=== PATIENT | female | born 1940 | race Caucasian/White ===

== ENCOUNTER 2019-08-31 17:52 | Inpatient (IN) | payer MEDICARE, OTHER ==
[~2019-08-31] VITALS: Ht 167.6 cm; Wt 79.0 kg
[~2019-08-31 17:52] MED LIST: CALC-1197 PO; MULT-1085 PO; PARO-62 PO
[2019-08-31 18:23] LABS: BASOPHILS # (AUTO) 0.1 X10'3 (0-0.2); BASOPHILS % (AUTO) 0.7 % (0-1); EOSINOPHILS # (AUTO) 0.2 X10'3 (0-0.9); EOSINOPHILS % (AUTO) 1.8 % (0-6); HEMATOCRIT 32.8 % (35.0-45.0); LYMPHOCYTES # (AUTO) 2.3 X10'3 (1.1-4.8); LYMPHOCYTES % (AUTO) 24.1 % (21-51); MEAN CORPUSCULAR HEMOGLOBIN 29.4 PG (27.0-31.0); MEAN CORPUSCULAR HGB CONC 33.5 g/dL (33.0-36.5); MEAN CORPUSCULAR VOLUME 87.6 FL (78-98); MEAN PLATELET VOLUME 8.6 FL (7.4-10.4); MONOCYTES # (AUTO) 1.2 X10'3 (0-0.9); MONOCYTES % (AUTO) 12.4 % (2-12); NEUTROPHILS # (AUTO) 5.9 X10'3 (1.8-7.7); PLATELET COUNT 224 X10'3 (140-440); RED BLOOD COUNT 3.75 X10'6 (4.20-5.60); RED CELL DISTRIBUTION WIDTH 15.1 % (11.5-14.5); WHITE BLOOD COUNT 9.7 X10'3 (4.5-11.0)
[2019-08-31 18:47] LABS: ALANINE AMINOTRANSFERASE 18 U/L (12-78); ALBUMIN 3.4 G/DL (3.4-5.0); ALBUMIN/GLOBULIN RATIO 0.8 (1.1-1.5); ALKALINE PHOSPHATASE 115 IU/L (46-116); ANION GAP 14 (8-16); ASPARTATE AMINO TRANSFERASE 21 U/L (10-37); BILIRUBIN,TOTAL 0.2 MG/DL (0.1-1.0); BLOOD UREA NITROGEN 27 MG/DL (7-18); BUN/CREATININE RATIO 18.9 (6.6-38.0); CALCIUM 8.2 MG/DL (8.5-10.1); CHLORIDE 104 MMOL/L (99-107); CREATININE 1.43 MG/DL (0.40-0.90); GLUCOSE 167 MG/DL (70-104); SODIUM 138 MMOL/L (135-145); TOTAL CARBON DIOXIDE 20.5 MMOL/L (24-32); TOTAL PROTEIN 7.6 G/DL (6.4-8.2); eGFR 36 ML/MIN
[2019-08-31 18:53] LABS: POTASSIUM 4.1 MMOL/L (3.5-5.1)
[2019-08-31 21:04] LABS: TROPONIN I 0.12 NG/ML (0.0-0.05)
[2019-08-31] MEDS ORDERED: BUPR-84 PO (21:27)
[2019-08-31] MEDS ORDERED: aspirin 81mg tab.chew PO ONE (21:45)
[2019-08-31] MEDS ORDERED: nitroGLYCERIN 0.4mg/hour patch TD ONE (21:45)
[2019-08-31] MEDS ORDERED: furosemide 40mg/4ml inj IV ONE (21:45)
--- NOTE | 2019-08-31 23:14 | NUR ---
COVERING FOR ASSIGN NURSE ,PT ASKED FOR GLASS OF WATER ALSO CO ACID REFLEX NOTIFIED DR FRANKLIN PER MD PT CAN HAVE WATER AND SHE WILL ORDER MEDS FOR ACID REFLUX.
[2019-08-31] MEDS ORDERED: pantoprazole 40 MG vial IV ONE (23:15)
[2019-08-31] MEDS ORDERED: mag hydrox/Alum hydrox/simeth 30ml oral suspension PO ONE (23:15)
[2019-09-01] VITALS (7 sets, daily range): BP systolic 96–148; BP diastolic 57–77
[2019-09-01] MEDS ORDERED: ondansetron/PF 4mg/2ml inj IV PRN (00:10)
[2019-09-01] MEDS ORDERED: magnesium hydroxide 30ml (MOM) UD suspension PO PRN (00:10)
[2019-09-01] MEDS ORDERED: acetaminophen 325mg tablet PO PRN (00:10)
--- NOTE | 2019-09-01 01:03 | NUR ---
Report was taken from Michelle in ER. Patient arrived on the floor at 00:40 in no apparent distress. All question and concerns were addressed.
--- NOTE | 2019-09-01 06:33 | NUR ---
Problems reprioritized. Patient report given, questions answered & plan of care reviewed with Nai.
--- NOTE | 2019-09-01 06:35 | NUR ---
Patient in room PCU 3025. I have received report from Geovany/Michele RNs and had the opportunity to ask questions and assume patient care. Patient is currently sleeping in bed, bed locked and low, call light in reach, no acute distress, will continue to monitor.
[2019-09-01] MEDS ORDERED: furosemide 10 MG/1 ML 10ml inj IV ONE (08:00)
[2019-09-01] MEDS ORDERED: aspirin 325mg tablet PO SCH (08:30)
[2019-09-01] MEDS: carVEDilol 3.125mg tablet PO SCH ×2 (09:36→20:50)
[2019-09-01] MEDS: multivitamins, therapeutics tablet PO SCH (09:36)
[2019-09-01] MEDS: buPROPion SR 150mg tablet PO SCH ×2 (09:36→20:50)
[2019-09-01] MEDS: heparin, porcine 5000 units/ml vial SQ SCH ×2 (09:38→20:50)
[2019-09-01] MEDS ORDERED: furosemide 40mg/4ml inj IV ONE (10:45)
[2019-09-01 12:08] LABS: CHOL/HDL RATIO 2.5 (0.00-4.99); CHOLESTEROL 189 MG/DL (0-200); HDL CHOLESTEROL 77 MG/DL (35-60); LDL CHOLESTEROL 102 MG/DL (50-100); TRIGLYCERIDES 84 MG/DL (20-135)
--- NOTE | 2019-09-01 15:34 | NUR ---
PAGER ID: [phone] MESSAGE: Maroc Trimble, ext [phone], [phone], Elder, Patient is wanting to know results of her echo and states she wants to speak to the doctor as soon as possible.
[2019-09-01] MEDS: lisinopril 5mg tablet PO SCH (15:52)
--- NOTE | 2019-09-01 16:30 | NUR ---
PAGER ID: [phone] MESSAGE: COLBY Trimble ext [phone], [phone], Elder, please call, patient has not been seen yet.
--- NOTE | 2019-09-01 18:22 | NUR ---
Problems reprioritized. Patient report given, questions answered & plan of care reviewed with Kosta, RN. Patient stable at shift change
--- NOTE | 2019-09-01 18:35 | NUR ---
Patient in room PCU 3025. I have received report from Nai BOWMAN and had the opportunity to ask questions and assume patient care.
[2019-09-01] MEDS: furosemide 40mg/4ml inj IV SCH (20:49)
[2019-09-02 02:00] VITALS: BP 102/61
[2019-09-02 05:48] LABS: BASOPHILS % (AUTO) 0.4 % (0-1); EOSINOPHILS # (AUTO) 0.2 X10'3 (0-0.9); HEMATOCRIT 31.8 % (35.0-45.0); HEMOGLOBIN 11.1 g/dl (12.0-16.0); LYMPHOCYTES # (AUTO) 2.4 X10'3 (1.1-4.8); LYMPHOCYTES % (AUTO) 24.7 % (21-51); MEAN CORPUSCULAR HEMOGLOBIN 29.4 PG (27.0-31.0); MEAN CORPUSCULAR HGB CONC 34.8 g/dL (33.0-36.5); MEAN CORPUSCULAR VOLUME 84.6 FL (78-98); MEAN PLATELET VOLUME 8.9 FL (7.4-10.4); MONOCYTES # (AUTO) 1.1 X10'3 (0-0.9); MONOCYTES % (AUTO) 11.9 % (2-12); NEUTROPHILS # (AUTO) 5.8 X10'3 (1.8-7.7); PLATELET COUNT 222 X10'3 (140-440); RED BLOOD COUNT 3.76 X10'6 (4.20-5.60); RED CELL DISTRIBUTION WIDTH 14.7 % (11.5-14.5); WHITE BLOOD COUNT 9.6 X10'3 (4.5-11.0)
[2019-09-02 06:00] VITALS: BP 103/66
[2019-09-02 06:04] LABS: ALANINE AMINOTRANSFERASE 19 U/L (12-78); ALBUMIN 3.3 G/DL (3.4-5.0); ALBUMIN/GLOBULIN RATIO 0.8 (1.1-1.5); ALKALINE PHOSPHATASE 94 IU/L (46-116); ANION GAP 11 (8-16); ASPARTATE AMINO TRANSFERASE 21 U/L (10-37); BILIRUBIN,TOTAL 0.3 MG/DL (0.1-1.0); BLOOD UREA NITROGEN 37 MG/DL (7-18); BUN/CREATININE RATIO 21.4 (6.6-38.0); CALCIUM 8.7 MG/DL (8.5-10.1); CHLORIDE 103 MMOL/L (99-107); CREATININE 1.73 MG/DL (0.40-0.90); GLUCOSE 109 MG/DL (70-104); SODIUM 140 MMOL/L (135-145); TOTAL CARBON DIOXIDE 25.8 MMOL/L (24-32); TOTAL PROTEIN 7.2 G/DL (6.4-8.2); eGFR 29 ML/MIN
--- NOTE | 2019-09-02 06:28 | NUR ---
Problems reprioritized. Patient report given, questions answered & plan of care reviewed with Nai Javed RN.
--- NOTE | 2019-09-02 06:31 | NUR ---
Patient in room PCU 3025. I have received report from COLBY Brambila and had the opportunity to ask questions and assume patient care. Patient currently resting in bed, bed locked and low, call light in reach, no acute distress, will continue to monitor.
[2019-09-02] MEDS: furosemide 40mg/4ml inj IV SCH (07:55)
[2019-09-02] MEDS: atorvastatin 10mg tablet PO SCH (07:56)
[2019-09-02] MEDS: heparin, porcine 5000 units/ml vial SQ SCH ×2 (07:56→19:56)
[2019-09-02] MEDS: buPROPion SR 150mg tablet PO SCH ×2 (07:56→19:54)
[2019-09-02] MEDS: carVEDilol 3.125mg tablet PO SCH ×2 (07:56→19:58)
[2019-09-02] MEDS: multivitamins, therapeutics tablet PO SCH (08:07)
[2019-09-02] MEDS: lisinopril 5mg tablet PO SCH (08:08)
[2019-09-02] MEDS: aspirin 81mg tablet.DR PO SCH (08:30)
[2019-09-02] MEDS ORDERED: regadenoson 0.4mg/5ml syringe IV ONE ×2 (09:05→09:25)
[2019-09-02] MEDS ORDERED: nitroGLYCERIN 0.4mg SUBLingual tab SL PRN (09:05)
[2019-09-02] MEDS ORDERED: aminophylline 250mg/10ml inj. IV PRN (09:05)
[2019-09-02] MEDS ORDERED: metoprolol tartrate 1mg/ml inj IV PRN (09:05)
[2019-09-02] MEDS ORDERED: carVEDilol 3.125mg tablet PO ONE (09:50)
[2019-09-02 10:17] LABS: MAGNESIUM 1.8 MG/DL (1.5-2.4)
[2019-09-02 10:25] LABS: D-DIMER 9.96 MG/L FEU (0-0.50)
[2019-09-02] MEDS ORDERED: magnesium 2GM in 50ml NS 50 ML IV ONE (10:35)
[2019-09-02 11:00] VITALS: BP 81/48
--- NOTE | 2019-09-02 14:39 | NUR ---
PAGER ID: [phone] MESSAGE: COLBY Trimble ex [phone], Patient expressing new onset and worsening nausea, and sweating, hypotensive 87/51, no chest pain or other symptoms
[2019-09-02 15:00] VITALS: BP 110/44
[2019-09-02 18:00] VITALS: BP 120/44
--- NOTE | 2019-09-02 18:23 | NUR ---
Problems reprioritized. Patient report given, questions answered & plan of care reviewed with Kosta, RN. Patient resting in bed, no acute distress, stable at shift change
--- NOTE | 2019-09-02 18:30 | NUR ---
Patient in room PCU 3025. I have received report from Nai Javed RN and had the opportunity to ask questions and assume patient care.
[2019-09-02] MEDS ORDERED: potassium Cl 20 mEq SR tablet PO PRN ×2 (19:25)
[2019-09-02] MEDS ORDERED: magnesium Cl slow-release 64mg tablet PO PRN (19:25)
[2019-09-02] MEDS ORDERED: magnesium 4gm in 100ml NS 100 ML IV PRN (19:25)
[2019-09-02] MEDS ORDERED: potassium CL 10mEq/100ml bag 100 ML IV PRN (19:25)
[2019-09-02] MEDS: albuterol 2.5 MG/3 ML nebule NEB SCH (19:49)
[2019-09-02 22:00] VITALS: BP 92/60
[2019-09-02] MEDS ORDERED: normal saline 1000ml 1,000 ML IV ONE (22:20)
[2019-09-02] MEDS ORDERED: morphine 4 MG/ML inj SYRINge IV ONE (22:20)
[2019-09-02] MEDS: mag hydrox/Alum hydrox/simeth 30ml oral suspension PO PRN (22:30)
[2019-09-03] VITALS (19 sets, daily range): BP systolic 84–124; BP diastolic 48–74
[2019-09-03] MEDS: albuterol 2.5 MG/3 ML nebule NEB SCH ×4 (02:45→20:46)
[2019-09-03 05:22] LABS: BASOPHILS % (AUTO) 0.4 % (0-1); EOSINOPHILS # (AUTO) 0.1 X10'3 (0-0.9); EOSINOPHILS % (AUTO) 0.8 % (0-6); HEMATOCRIT 30.5 % (35.0-45.0); HEMOGLOBIN 10.5 g/dl (12.0-16.0); LYMPHOCYTES # (AUTO) 1.8 X10'3 (1.1-4.8); LYMPHOCYTES % (AUTO) 18.7 % (21-51); MEAN CORPUSCULAR HEMOGLOBIN 29.5 PG (27.0-31.0); MEAN CORPUSCULAR HGB CONC 34.3 g/dL (33.0-36.5); MEAN CORPUSCULAR VOLUME 85.8 FL (78-98); MEAN PLATELET VOLUME 8.7 FL (7.4-10.4); MONOCYTES % (AUTO) 10.8 % (2-12); NEUTROPHILS # (AUTO) 6.7 X10'3 (1.8-7.7); NEUTROPHILS % (AUTO) 69.3 % (42-75); PLATELET COUNT 225 X10'3 (140-440); RED BLOOD COUNT 3.56 X10'6 (4.20-5.60); RED CELL DISTRIBUTION WIDTH 14.9 % (11.5-14.5); WHITE BLOOD COUNT 9.6 X10'3 (4.5-11.0)
[2019-09-03 05:48] LABS: ALANINE AMINOTRANSFERASE 25 U/L (12-78); ALBUMIN 3.1 G/DL (3.4-5.0); ALBUMIN/GLOBULIN RATIO 0.8 (1.1-1.5); ALKALINE PHOSPHATASE 87 IU/L (46-116); ANION GAP 9 (8-16); ASPARTATE AMINO TRANSFERASE 25 U/L (10-37); BILIRUBIN,TOTAL 0.3 MG/DL (0.1-1.0); BLOOD UREA NITROGEN 44 MG/DL (7-18); CALCIUM 8.6 MG/DL (8.5-10.1); CHLORIDE 104 MMOL/L (99-107); GLUCOSE 108 MG/DL (70-104); POTASSIUM 4.1 MMOL/L (3.5-5.1); SODIUM 140 MMOL/L (135-145); TOTAL CARBON DIOXIDE 26.6 MMOL/L (24-32); TOTAL PROTEIN 6.8 G/DL (6.4-8.2); eGFR 24 ML/MIN
--- NOTE | 2019-09-03 06:40 | NUR ---
Problems reprioritized. Patient report given, questions answered & plan of care reviewed with Helene Garcia RN.
--- NOTE | 2019-09-03 07:17 | NUR ---
Page to Melissa MOLINA: PAGER ID: [phone] MESSAGE: Layla Paulson Pt. has both a BRANDI scan and a lung scan ordered for today. Only one can be preformed Per Karen BOWMAN . Which test is your preference for today. Helene BOWMAN [phone] [id number]
--- NOTE | 2019-09-03 07:19 | NUR ---
Patient in room PCU 3025. I have received report from Kosta RN, and had the opportunity to ask questions and assume patient care.
[2019-09-03] MEDS: carVEDilol 3.125mg tablet PO SCH ×2 (08:00→20:00)
[2019-09-03] MEDS: furosemide 40mg/4ml inj IV SCH ×2 (08:00→16:51)
[2019-09-03] MEDS: buPROPion SR 150mg tablet PO SCH ×2 (10:33→20:41)
[2019-09-03] MEDS: aspirin 81mg tablet.DR PO SCH (10:33)
[2019-09-03] MEDS: heparin, porcine 5000 units/ml vial SQ SCH ×2 (10:34→20:41)
--- NOTE | 2019-09-03 11:30 | NUR ---
Dr. Torres at bedside: Pt. leaves for Margo scan on O2, 3L.
[2019-09-03] MEDS ORDERED: aminophylline inj. 10 ML IV ONE (12:15)
[2019-09-03] MEDS: atorvastatin 10mg tablet PO SCH (15:34)
[2019-09-03] MEDS: multivitamins, therapeutics tablet PO SCH (15:34)
--- NOTE | 2019-09-03 17:10 | NUR ---
Jessi at bedside: Nursing will give IV lasix now.
--- NOTE | 2019-09-03 18:12 | NUR ---
Patient in room PCU 3024S. I have received report from COLBY Narayan and had the opportunity to ask questions and assume patient care. Pt is sleeping with no sign of distress. Will continue to monitor
--- NOTE | 2019-09-03 18:12 | NUR ---
Problems reprioritized. Patient report given, questions answered & plan of care reviewed with Chapito BOWMAN.
[2019-09-03] MEDS ORDERED: normal saline 1000ml 1,000 ML IV SCH (18:25)
[2019-09-04] VITALS (7 sets, daily range): BP systolic 94–130; BP diastolic 55–90
[2019-09-04] MEDS: albuterol 2.5 MG/3 ML nebule NEB SCH ×4 (03:40→19:57)
[2019-09-04 05:45] LABS: BASOPHILS % (AUTO) 0.2 % (0-1); EOSINOPHILS # (AUTO) 0.1 X10'3 (0-0.9); EOSINOPHILS % (AUTO) 1.1 % (0-6); HEMATOCRIT 28.8 % (35.0-45.0); LYMPHOCYTES # (AUTO) 1.4 X10'3 (1.1-4.8); LYMPHOCYTES % (AUTO) 15.6 % (21-51); MEAN CORPUSCULAR HEMOGLOBIN 29.7 PG (27.0-31.0); MEAN CORPUSCULAR HGB CONC 34.9 g/dL (33.0-36.5); MEAN CORPUSCULAR VOLUME 85.3 FL (78-98); MEAN PLATELET VOLUME 8.9 FL (7.4-10.4); NEUTROPHILS # (AUTO) 6.5 X10'3 (1.8-7.7); NEUTROPHILS % (AUTO) 72.1 % (42-75); PLATELET COUNT 224 X10'3 (140-440); RED BLOOD COUNT 3.38 X10'6 (4.20-5.60); RED CELL DISTRIBUTION WIDTH 14.8 % (11.5-14.5); WHITE BLOOD COUNT 8.9 X10'3 (4.5-11.0)
[2019-09-04 05:50] LABS: ALANINE AMINOTRANSFERASE 29 U/L (12-78); ALBUMIN 3.2 G/DL (3.4-5.0); ALBUMIN/GLOBULIN RATIO 0.8 (1.1-1.5); ALKALINE PHOSPHATASE 91 IU/L (46-116); ANION GAP 12 (8-16); ASPARTATE AMINO TRANSFERASE 28 U/L (10-37); BILIRUBIN,TOTAL 0.3 MG/DL (0.1-1.0); BLOOD UREA NITROGEN 51 MG/DL (7-18); BUN/CREATININE RATIO 26.7 (6.6-38.0); CALCIUM 8.1 MG/DL (8.5-10.1); CHLORIDE 102 MMOL/L (99-107); CREATININE 1.91 MG/DL (0.40-0.90); GLUCOSE 119 MG/DL (70-104); MAGNESIUM 2.6 MG/DL (1.5-2.4); POTASSIUM 3.9 MMOL/L (3.5-5.1); SODIUM 139 MMOL/L (135-145); TOTAL CARBON DIOXIDE 25.4 MMOL/L (24-32); eGFR 25 ML/MIN
--- NOTE | 2019-09-04 06:09 | NUR ---
Problems reprioritized. Patient report given, questions answered & plan of care reviewed with COLBY Mendieta. Pt stable at shift change
--- NOTE | 2019-09-04 06:24 | NUR ---
Patient in room PCU 3025. I have received report from COLBY Uriarte and had the opportunity to ask questions and assume patient care.
[2019-09-04] MEDS: buPROPion SR 150mg tablet PO SCH ×2 (08:00→22:08)
[2019-09-04] MEDS: carVEDilol 3.125mg tablet PO SCH ×2 (08:00→22:08)
[2019-09-04] MEDS: multivitamins, therapeutics tablet PO SCH (08:00)
[2019-09-04] MEDS: aspirin 81mg tablet.DR PO SCH (08:00)
[2019-09-04] MEDS: atorvastatin 10mg tablet PO SCH (08:00)
[2019-09-04] MEDS: heparin, porcine 5000 units/ml vial SQ SCH (08:02)
[2019-09-04] MEDS: mag hydrox/Alum hydrox/simeth 30ml oral suspension PO PRN ×2 (13:31→13:35)
--- NOTE | 2019-09-04 13:58 | NUR ---
Pt c/o MD DHRUV notified. PAGER ID: [phone] MESSAGE: [phone] KhurramScot. Pt c/o SOB/felt she can't breathe. SpO2 90% on 4L, bumped to 5L and satting 93%. HR 100-110s, SBP 137. Skin cool to touch, forehead clammy. Pt states still does not feel well. Please advise. Homa [id number] Addendum: 09/04/19 at 1415 by Sonja Hassan RN 1400 Received return call from Dr Rodriguez regarding patient. Orders received to stop IVF, bladder scan patient and to place Moseley catheter for strict I&Os. After moseley placed, administer 20mg IV Lasix. If Lasix is successful and pt BP tolerates, please give an additional 20 of IV Lasix and notify MD or results. Orders entered per MD and primary RN notified.
[2019-09-04] MEDS ORDERED: furosemide 20 MG/2 ML vial IV ONE (14:05)
--- NOTE | 2019-09-04 14:46 | NUR ---
c/o dyspnea, she is moaning respiration 20. sats low 90's on 5 lpm. placed i@ 45 degrees for comfort. moseley cath placed per order tolerated well by pt. 20 ml dark yellow urine return. Pt had just urinated in the bsc. IV lasix given per order Will continue to monitor
--- NOTE | 2019-09-04 14:59 | NUR ---
Layla Paulson rm [phone] she c/o intermittent ache pain in mid chest no ST changes noted *page to Layo. He wants 12 lead EKG and PRN nitro
--- NOTE | 2019-09-04 17:32 | NUR ---
Layla Paulson Rm 3025b has had 106ml output in 3 hours via moseley. Charu RN PCU ext [phone] +page to Preethi
--- NOTE | 2019-09-04 18:15 | NUR ---
Problems reprioritized. Patient report given, questions answered & plan of care reviewed with COLBY Caldera .
[2019-09-04] MEDS ORDERED: apixaban 5mg tablet PO SCH (20:00)
[2019-09-04] MEDS ORDERED: furosemide 20 MG/2 ML vial IV SCH (20:00)
[2019-09-04] MEDS: furosemide 20 MG/2 ML vial IV SCH (22:07)
[2019-09-04] MEDS: apixaban 2.5mg tablet PO SCH (22:08)
[2019-09-05 03:00] VITALS: BP 130/90
[2019-09-05] MEDS: albuterol 2.5 MG/3 ML nebule NEB SCH ×2 (03:15→08:04)
[2019-09-05 08:18] LABS: BASOPHILS % (AUTO) 0.2 % (0-1); EOSINOPHILS % (AUTO) 0.1 % (0-6); HEMATOCRIT 31.2 % (35.0-45.0); HEMOGLOBIN 10.8 g/dl (12.0-16.0); LYMPHOCYTES # (AUTO) 0.9 X10'3 (1.1-4.8); LYMPHOCYTES % (AUTO) 10.6 % (21-51); MEAN CORPUSCULAR HEMOGLOBIN 29.5 PG (27.0-31.0); MEAN CORPUSCULAR HGB CONC 34.6 g/dL (33.0-36.5); MEAN CORPUSCULAR VOLUME 85.5 FL (78-98); MONOCYTES # (AUTO) 0.8 X10'3 (0-0.9); MONOCYTES % (AUTO) 9.2 % (2-12); NEUTROPHILS # (AUTO) 6.6 X10'3 (1.8-7.7); NEUTROPHILS % (AUTO) 79.9 % (42-75); PLATELET COUNT 246 X10'3 (140-440); RED BLOOD COUNT 3.65 X10'6 (4.20-5.60); RED CELL DISTRIBUTION WIDTH 14.7 % (11.5-14.5); WHITE BLOOD COUNT 8.2 X10'3 (4.5-11.0)
[2019-09-05] MEDS: multivitamins, therapeutics tablet PO SCH (08:18)
[2019-09-05] MEDS: aspirin 81mg tablet.DR PO SCH (08:18)
[2019-09-05] MEDS: apixaban 2.5mg tablet PO SCH (08:18)
[2019-09-05] MEDS: atorvastatin 10mg tablet PO SCH (08:18)
[2019-09-05] MEDS: carVEDilol 3.125mg tablet PO SCH (08:18)
[2019-09-05] MEDS: furosemide 20 MG/2 ML vial IV SCH (08:18)
[2019-09-05] MEDS: buPROPion SR 150mg tablet PO SCH (08:18)
[2019-09-05 08:39] LABS: TOTAL CARBON DIOXIDE 23.1 MMOL/L (24-32)
[2019-09-05 08:56] LABS: ALBUMIN 3.4 G/DL (3.4-5.0); ANION GAP 15 (8-16); BLOOD UREA NITROGEN 69 MG/DL (7-18); BUN/CREATININE RATIO 28.2 (6.6-38.0); CALCIUM 8.9 MG/DL (8.5-10.1); CHLORIDE 103 MMOL/L (99-107); CREATININE 2.45 MG/DL (0.40-0.90); GLUCOSE 136 MG/DL (70-104); MAGNESIUM 3.4 MG/DL (1.5-2.4); POTASSIUM 5.1 MMOL/L (3.5-5.1); SODIUM 141 MMOL/L (135-145); eGFR 19 ML/MIN
--- NOTE | 2019-09-05 09:55 | NUR ---
promotional table spacer PAGER ID: [phone] MESSAGE: Rm [phone], Elder. Patient SOB, cold and clammy. Could we get an ABG? Thu [phone]
--- NOTE | 2019-09-05 09:59 | NUR ---
Called a rapid on patient. Ling MOLINA. at bedside. Patient having increasing SOB which is a change from this am. Patient feels cold and clammy as well. New verbal orders for lasix, ABG, morphine, for patient. Respiratory has placed patient on a non-rebreather. Chest xray obtained. Patient continues to be SOB, MD consulting with intensivists.
[2019-09-05] MEDS ORDERED: furosemide 40mg/4ml inj IV ONE (10:10)
--- NOTE | 2019-09-05 10:22 | NUR ---
Page Sent promotional table spacer PAGER ID: [phone] MESSAGE: Rm [id number], Elder. Respiratory is still trying to get ABG, would you like to keep her on the mask or put her on bipap without an ABG? Thu [phone]
[2019-09-05] MEDS ORDERED: morphine 2 MG/ML inj. syringe IV ONE (10:30)
[2019-09-05] MEDS ORDERED: furosemide inj 100 ML IV SCH (10:45)
[2019-09-05 10:46] LABS: ABG BASE EXCESS -4.2 mmol/L (-2.0-3.0); ABG HCO3 19.2 mmol/L (22.0-26.0); ABG PH (T) 7.424 (7.350-7.450); ABG PO2 (T) 242.4 mmHg (83-108); ALLEN'S TEST Positive; FCOHb 0.2 % (0.5-1.5); FLOW 15 L/min; FMetHb 0.1 % (0.3-1.12); FO2Hb 98.7 % (94-100); TOTAL HEMOGLOBIN 11.6 G/dl (12.0-16.0)
[2019-09-05] MEDS ORDERED: LORazepam 2 mg/ml vial IV PRN (11:10)
--- NOTE | 2019-09-05 13:28 | NUR ---
RN IS TO DOCUMENT YES TO ALL APPLICABLE AREAS Pronouncement of : Yes 1. Time Physician Notified: Dr. Rodriguez 2. Date of :09/05/19 3. Time of : 1208 4. DNR/Withdraw life support documented:Yes 5. Monitor strip has been placed on chart:Yes 6. Assessment process is of one-minute duration and includes following criteria: a) Patient is unresponsive to all stimuli:Yes b) Pupils fixed and non-reactive:Yes c) Auscultation of precordium reveals absence of heart tones:Yes d) Auscultation of lungs reveals absence of breath sounds:Yes e) Absence of blood pressure / all vital signs:Yes f) QRS complexes are not present on monitor / EKG strip:Yes g) Pacer spikes without capture:N/A 4. Comments:
--- NOTE | 2019-09-05 13:31 | NUR ---
Family at bedside with patient at this time, will contact Mireille Pratt when family is finished.
--- NOTE | 2019-09-05 14:47 | NUR ---
Patient moseley catheter and PIV removed with cannula intact, post mortem care provided, awaiting pickup by Juan.
--- NOTE | 2019-09-05 15:00 | NUR ---
Patient was picked up by Christoph LOO.
== END 2019-09-05 15:00 | disposition expired | DRG 682 ==
LOC: ER 17:53 → PCU 3S 09-01 00:43 → CMPBEDREQ 09-01 00:47
PROVIDERS: ADMIT Internal Medicine; ATTEND Hospitalist
PROC: 4A02XM4 Measurement of Cardiac Total Activity, External Approach (ICD-10-PCS; principal; 2019-09-03)
PROC: 3E033HZ Introduction of Radioactive Substance into Peripheral Vein, Percutaneous Approach (ICD-10-PCS; 2019-09-03)
DX: N17.0 Acute kidney failure with tubular necrosis (principal); I50.33 Acute on chronic diastolic (congestive) heart failure; J96.91 Respiratory failure, unspecified with hypoxia; G92 Toxic encephalopathy; I26.99 Other pulmonary embolism without acute cor pulmonale; I48.92 Unspecified atrial flutter; N18.9 Chronic kidney disease, unspecified; R62.7 Adult failure to thrive; J44.9 Chronic obstructive pulmonary disease, unspecified; F41.9 Anxiety disorder, unspecified; F32.9 Major depressive disorder, single episode, unspecified; I48.0 Paroxysmal atrial fibrillation; Z66 Do not resuscitate; Z82.49 Family history of ischemic heart disease and other diseases of the circulatory system; Z90.710 Acquired absence of both cervix and uterus; Z68.28 Body mass index [BMI] 28.0-28.9, adult
CPT/HCPCS: 36415; 36600; 71045; 71046; 78452; 80048; 80053; 80061; 82803; 82948; 83605; 83735; 83880; 84443; 84484; 85018; 85025; 85379; 87040; 87081; 93005; 93017; 93306; 94640; 94760; 96374; 96375; 99285; A9500; C9113; G0378; J0280; J1644; J1940; J2060; J2270; J2785; J3475; J7030